=== PATIENT | male | born 1965 | race Caucasian/White ===

== ENCOUNTER 2018-01-17 07:13 | Day surgery (SDC) | payer BC, SELFPAY ==
--- NOTE | 2018-01-17 06:44 | PDOC.DSDIS_ITS ---
Discharge Plan Disposition Patient Disposition: HOME Condition: Fair Discharge Details Reason For Visit: SCREENING Attending Provider: Sudha Hurtado Primary Care Provider: Kyung Lam Home Meds and New Rx's Prescriptions: Continue cyclobenzaprine 10 MG tablet 10 mg PO TID RF: 0 ibuprofen 800 MG tablet 800 mg PO TID RF: 0 Discontinued bisacodyl [Bisa-Lax] 5 MG tablet,delayed release (DR/EC) 5 mg PO as directed Qty: 4 RF: 0 polyethylene glycol 3350 255 GM powder 255 gm PO as directed for colo Qty: 255 RF: 0 Discharge Instructions Instructions: Colonoscopy (DC) Additional Instructions: Findings: normal colonoscopy Follow up: 10 years New Medications: none Please call if you develop: Fevers >101.5 Nausea or Vomiting Abdominal pain that is not transient 1. Because there will be medication in your system for the next 24 hours, you may feel a little sleepy. Your coordination will be affected. Therefore: a. Do not drive or operate dangerous equipment for 24 hours. b. Do not drink alcohol beverages for 24 hours (not even beer). c. Plan to go home and rest for the day. 2. Generally there are no restrictions on your activity after a day or so has gone by, but you may feel a bit fatigued for a few days. 3 After you arrive home you may have a light meal and return to a normal diet as you can tolerate it without feeling sick to your stomach. 4. After surgery, you may feel pain or discomfort. This should be only transient , but if it persists please contact your doctor. 5. If there are any questions regarding the findings of your procedure, please feel free to contact your doctor. 6. If you are unable to contact your doctor with a problem, contact the hospital at [phone]. 7. Continue all your regular medications unless directed otherwise. I understand the above instructions and have no questions. Signature of Patient or Responsible Adult Escort Date/Time Name of Responsible Adult Escort Signature of Nurse Date/Time Activity:: Activity as Tolerated Diet:: regular diet Discharge Orders Discharge Orders: Discharge Order (Routine); Ordered 01/17/18 Ordered By: Sudha Hurtado DS: Diagnosis Discharge Diagnosis (1) Normal colonoscopy: Status: Acute
--- NOTE | 2018-01-17 06:44 | W.COLOREPORT ---
Colonoscopy Report Date of procedure: 01/17/18 Pre-op diagnosis general: screening for colon cancer Post-op diagnosis procedure note: same Procedure: Colonoscopy Surgeon: Sudha Hurtado Anesthesia proc note operative: MAC Estimated blood loss (mL): 0 Pathology: none sent Complications: None Disposition: same day Indications: Mr. Franklin is a pleasant 52 year old male who was seen in the office for a screening Colonoscopy. Risks, benefits and complications were reviewed in the office and in SDS. Prep: Miralax/Dulcolax Procedure Start Time: 08:39 Procedure End Time: 09:00 Retraction Time: 12 minutes Findings: Normal colon Procedure Description: After informed consent was obtained the patient was taken to the procedure room and placed in a left decubitous position. Monitors were applied and a time out was done. The patients name, date of , procedure, allergies to medications and metal in their body was reviewed. The patient was then sedated. Once sedated and comfortable a rectal exam was done. External exam was normal. Internal exam revealed a normal sphincter tone and no palpable masses. The prostate was normal. The scope was then introduced and retrofelexed. No internal hemorrhoids were identified. The scope was straightened and then advanced to the cecum without difficulty. The TI and appendiceal orifice were identified. The prep was adequate. The scope was then slowly retracted over 12 minutes back into the rectum. The scope was removed and the patient was woken up and taken back to Same day surgery in stable condition. The patient tolerated the procedure well and there were no immediate complications. Follow up: The patient should follow up in 10 years unless they develop changes in bowel habits or other new gastrointestinal complaints.
[2018-01-17 07:25] VITALS: BP 121/85; PULSE 57; RESP 18; TEMP 36.2; O2SAT 97
[2018-01-17] MEDS: Lactated Ringers 1,000 ML 80 ML IV (07:54)
[2018-01-17 09:45] VITALS: BP 117/88; PULSE 60; RESP 16; TEMP 35.3; O2SAT 100
== END 2018-01-17 10:00 | disposition home or self-care (01) ==
LOC: SUR 07:14
PROVIDERS: PCP Family Medicine; Visit Provider Surgery
PROC: 0DJD8ZZ Inspection of Lower Intestinal Tract, Via Natural or Artificial Opening Endoscopic (ICD-10-PCS; CPT 45378; principal; 2018-01-17 08:15)
DX: Z12.11 Encounter for screening for malignant neoplasm of colon (principal)
CPT/HCPCS: 45378

== ENCOUNTER 2019-02-27 18:35 | Outpatient (REF) | payer OTHER, SELFPAY ==
[2019-02-27 18:40] LABS: Anion Gap 10.6 mmol/L (3-11); BUN 10 mg/dL (7-18); CO2 28.4 mmol/L (21.0-32.0); CREATININE 0.97 mg/dL (0.70-1.30); Calculated LDL 124 mg/dL; Chloride 104 mmol/L (98-107); Cholesterol 213 mg/dL (50-200); Glucose 90 mg/dL (70-100); HDL Cholesterol 40 mg/dL (40-60); Potassium 4.5 mmol/L (3.5-5.1); Sodium 143 mmol/L (136-145); Triglyceride 246 mg/dL (30-150)
[2019-02-27 18:43] LABS: Hemoglobin A1C 5.2 % (4.5-6.2)
[2019-03-01 12:19] LABS: Hepatitis C Ab w Rflx HCV PCR Negative (NEGAT)
== END 2019-02-27 18:55 ==
LOC: NCHCN 18:35
PROVIDERS: PCP Family Medicine; Visit Provider Family Medicine
DX: Z00.00 Encounter for general adult medical examination without abnormal findings (principal); Z13.228 Encounter for screening for other metabolic disorders; Z11.59 Encounter for screening for other viral diseases; Z13.220 Encounter for screening for lipoid disorders; Z13.1 Encounter for screening for diabetes mellitus
CPT/HCPCS: 80048; 80061; 86803; 83036

== ENCOUNTER 2019-05-12 21:55 | Emergency (ER) | payer OTHER, SELFPAY ==
[2019-05-12 21:59] VITALS: BP 115/80; PULSE 70; TEMP 36.5; O2SAT 99
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
== END 2019-05-12 22:50 | disposition home or self-care (01) ==
PROVIDERS: Emergency Provider Physician Assistant; PCP Family Medicine
DX: S91.012A Laceration without foreign body, left ankle, initial encounter (principal); W26.8XXA Contact with other sharp object(s), not elsewhere classified, initial encounter
CPT/HCPCS: 12002; 90471

== ENCOUNTER 2023-08-09 11:08 | Outpatient (REF) | payer BC, SELFPAY ==
[2023-08-09 18:38] LABS: Calculated LDL 157 mg/dL (<100); Cholesterol 240 mg/dL (<200); HDL Cholesterol 44 mg/dL (40-60); Triglyceride 198 mg/dL (<150)
[2023-08-09 18:43] LABS: Hemoglobin A1C 5.4 % (<5.7)
== END 2023-08-09 11:09 | disposition home or self-care (01) ==
LOC: NCHCN 11:08
PROVIDERS: PCP Family Medicine; Visit Provider Family Medicine
DX: Z13.1 Encounter for screening for diabetes mellitus (principal); Z13.6 Encounter for screening for cardiovascular disorders
CPT/HCPCS: 80061; 83036

== ENCOUNTER 2024-08-16 16:38 | Outpatient (REF) | payer BC, SELFPAY ==
[2024-08-16 20:34] LABS: BUN 15 mg/dL (7-18); Calcium 9.3 mg/dL (8.5-10.1); Calculated LDL 163 mg/dL (<100); Chloride 105 mmol/L (98-107); Cholesterol 240 mg/dL (<200); Glucose 91 mg/dL (74-106); HDL Cholesterol 47 mg/dL (>or=40); Potassium 4.2 mmol/L (3.5-5.1); Sodium 143 mmol/L (136-145); Triglyceride 150 mg/dL (<150)
[2024-08-19 19:01] LABS: Apolipoprotein A1 137 mg/dL (>=120)
[2024-08-22 11:56] LABS: Lipoprotein (a) 190 nmol/L (<75)
== END 2024-08-16 16:39 | disposition home or self-care (01) ==
LOC: NCHCN 16:38
PROVIDERS: PCP Family Medicine; Visit Provider Family Medicine
DX: I10 Essential (primary) hypertension (principal)
CPT/HCPCS: 80048; 80061; 83695; 82172

== ENCOUNTER 2024-12-25 09:02 | Day surgery (SDC) | payer BC, SELFPAY ==
--- NOTE | 2024-12-24 16:22 | W.PM.DSUDISC ---
Date of service: 12/25/24 Discharge Plan Disposition Patient Disposition: Home Condition: Good Discharge Details Reason For Visit: screening colonoscopy Attending Provider: Eder Gtz Primary Care Provider: Kyung Lam Home Meds and New Rx's Prescriptions: Continued cyclobenzaprine 10 MG tablet 10 mg PO PRN PRN ibuprofen 800 MG tablet 800 mg PO PRN PRN Discontinued bisacodyl [Dulcolax (bisacodyl)] 5 mg tablet,delayed release (DR/EC) 5 mg PO ONCE Qty: 4 0RF Rx Instructions: Take per colonoscopy instructions provided by ordering providers office polyethylene glycol 3350 17 gram/dose powder 17 g PO ONCE Qty: 238 0RF Rx Instructions: Take per colonoscopy instructions provided by ordering providers office Discharge Instructions Additional Instructions: Charles, was a pleasure meeting you today, hope you are comfortable through the procedure. Things went very smoothly. Your prep was outstanding. I did not see any signs of tumors, polyps, or anything else out of the ordinary today. Based on your family history, I recommend a 5-year interval for your screening colonoscopies. If you need anything or have any questions at all, please do not hesitate to ask at any time. 1. If tolerated, consume a soft, low fiber diet for 1-2 days. 2. Do not drive, drink alcohol, operate machinery, make critical decisions, or do activities that require coordination or balance for 24 hours. 3. Because air was put into your colon during the procedure, expelling air from your rectum (passing gas or farting) is normal. 4. You may not have a bowel movement for 1-3 days because of the colonoscopy prep. This is normal. 5. Go directly to the emergency room if you notice any of the following: Develop chills (warm to touch), or if you have a thermometer and your temperature is above 101 Difficulty breathing or difficultly swallowing Persistent vomiting Severe abdominal pain, other than gas cramps Severe chest pain Black, tarry stools Any bleeding ? exceeding one tablespoon 6. Call your physician if the site where your intravenous was started becomes red, swollen, painful, and warm to touch. 7. Your physician has reviewed your pre-procedure medications. Please continue to take those medications as previously ordered. You will be given specific information/education regarding any changes to your medications before leaving. Activity:: Activity as Tolerated Diet:: As Tolerated Discharge Orders Discharge Orders: Discharge Order (Routine); Ordered 12/24/24 Ordered By: Eder Gtz DS: Diagnosis Discharge Diagnosis (1) Encounter for screening colonoscopy: Status: Acute Asessment and Plan: Negative screening colonoscopy; based on family history, recommend 5-year intervals
--- NOTE | 2024-12-24 16:23 | W.COLOREPORT ---
Date of service: 12/25/24 Time of Service: 11:11 Colonoscopy Report Date of procedure: 12/25/24 Pre-op diagnosis general: screening colonoscopy Post-op diagnosis procedure note: other (Negative screening colonoscopy) Procedure: colonoscopy Surgeon: Eder Gtz Anesthesia Type: General:No Airway Estimated blood loss (mL): 0 Complications: None Disposition: same day Indications: Charles is a 59 year old man with a fmaily history of rectal cancer. He needs his next screening colonoscopy Prep: Miralax/Dulcolax Procedure Start Time: 10:51 Procedure End Time: 11:04 Retraction Time: 8 Findings: Normal colonoscopy Procedure Description: After the induction of anesthesia, and with the patient in left lateral decubitus position, I began by performing an external anorectal exam.? Perineum and skin were normal, as was the anal verge.? There was no evidence of external hemorrhoids.? Next, I performed a digital rectal exam.? I did not appreciate any abnormal findings.? Next, I advanced a colonoscope into the rectal vault.? I performed retroflexion.? This appeared normal.? Using insufflation, I then advanced the colonoscope beyond the rectal folds and into the sigmoid colon before advancing towards the cecum.? The quality of the prep was outstanding.? The scope was noted to be in the cecum by identification of the ileocecal valve and appendiceal orifice.? I then began withdrawing the colonoscope using repeated irrigation as necessary for full evaluation of the colonic mucosa. ?Once the scope was withdrawn to the level of the rectum, great care was taken to examine portions of the rectal folds.? I saw no signs of tumors, polyps, or any other pathology. Finally, the scope was withdrawn and the patient was brought to the same-day surgery recovery unit as the anesthetic wore off. ?The findings and instructions were shared with the patient prior to discharge. [place] Bowel Prep [place] Bowel Prep Right Colon: 3 Left Colon: 3 Transverse Colon: 3 Total Score: 9
--- NOTE | 2024-12-24 18:48 | W.ANESPRE ---
General Info Date of Service Date Performed: 12/25/24 Height: 5 ft 10 in Weight: 89.358 kg Body Mass Index (BMI): 28.3 Surgical Procedure: Operation Date: 12/25/24 10:35 Proposed Procedure Side Surgeon p Colonoscopy Eder Gtz MD Meds Allergies and Home Medications Allergies Allergy/AdvReac Type Severity Reaction Status Date / Time No Known Allergies Allergy Verified 12/25/24 09:19 Home Medication ?Medication ?Instructions ?Recorded cyclobenzaprine 10 mg tablet 10 mg PO PRN PRN 11/02/17 ibuprofen 800 mg tablet 800 mg PO PRN PRN 11/02/17 Current Visit Medications: Current Medications Generic Name Dose Route Start Last Admin Trade Name Freq PRN Reason Stop Dose Admin Ringer's Solution 1,000 mls @ 80 mls/hr 12/25/24 06:00 IV 01/21/25 23:59 INFUSION GAVIN IV Miscellaneous Supplies 1 each 12/25/24 06:00 Iv Access IV 01/21/25 23:59 DIRECTED GAVIN Ondansetron HCl 4 mg 12/24/24 16:24 Ondansetron 4 Mg/2 Ml Vial IVP 01/23/25 16:23 Q4H PRN PRN Nausea / Vomiting Sodium Chloride 0 ml 12/25/24 06:00 Normal Saline Flush 10 Ml Syr IV 01/21/25 23:59 PRN PRN Sodium Chloride 0 ml 12/25/24 06:00 Normal Saline 10 Ml Vial IJ 01/21/25 23:59 DIRECTED PRN Sterile Water 0 ml 12/25/24 06:00 Water,Injection,Sterile 10 Ml Vial IJ 01/21/25 23:59 DIRECTED PRN PFSH Active Problems Active Problems: Problem Status Onset Code Encounter for screening colonoscopy Acute Z12.11 Hyperlipidemia Acute E78.5 Normal colonoscopy Acute Medical History Medical History Family history of rectal cancer Brother age 55 Back pain Actinic keratosis Surgical History Surgical History History of colonoscopy (~2017) Tobacco Smoking/Tobacco Use Status: Never Alcohol Alcohol Intake: current Alcohol intake frequency: a few times a week Substance Use Substance use: Never Substance use type: does not use Vital Signs and Lab Results Vital Signs Most Recent Vital Signs in EMR: Temp Pulse Resp BP Pulse Ox 36.2 C L 62 18 111/82 99 12/25/24 09:06 12/25/24 09:06 12/25/24 09:06 12/25/24 09:06 12/25/24 09:06 Anesthesia Assessment and Plan Anesthesia History Personal History: No History of Anesthesia Complications Family History: No Family History of Anesthesia Complications Exercise Tolerance Exercise Tolerance: Metabolic Equivalents>4 Pertinent Negatives Pertinent Negatives: No Symptoms of GERD, No Major Cardiovascular Symptoms or Complaints, No Major Pulmonary Symptoms or Complaints and No History of CVA/TIA Cardiac & Pulmonary Exam Cardiac Exam: Normal S1/S2 Heart Sounds Pulmonary Exam: Clear Bilateral Breath Sounds Implantable Cardiac Device Does patient have a Pacemaker or an ICD?: No Airway Exam Known Difficult Airway: No Mallampati Class: 1 Mouth Opening: Normal (> 3cm) Thyromental Distance: Greater than 3 cm Neck Range of Motion: Full ROM Neck Circumference: Normal Teeth Condition: Normal Dentition ASA Classification ASA Score: ASA 2 Emergency Case?: No NPO Status NPO Status: NPO Clears >2 hours, Solids >8 hours Anesthesia Plan Resuscitation Status: Full Code Anesthesia Technique: General Anesthesia Airway Planned: Natural Airway Monitors Used: Standard Monitors Preoperative Comments:: 59 yo for colo. Sig PMHx: no major. Previous Anes: - colo, prop, natural airway, no issues.
[2024-12-25 09:06] VITALS: BP 111/82; PULSE 62; RESP 18; TEMP 36.2; O2SAT 99
[2024-12-25] MEDS: Lactated Ringers 1,000 ML 80 ML IV (09:40)
[2024-12-25 10:34] VITALS: BMI 28.3
[2024-12-25 11:07] VITALS: BP 115/81; PULSE 78; RESP 16; TEMP 36.6; O2SAT 97
[2024-12-25 11:36] VITALS: BP 121/81; PULSE 62; RESP 18; O2SAT 96
--- NOTE | 2024-12-25 12:01 | W.ANESPOSTOP ---
Postoperative Evaluation Date, Time and Location Date Performed: 12/25/24 Time Performed: 11:10 Patient Location: Day Surgery Unit Vital Signs Most Recent Imported Vital Signs: Most Recent Vital Signs Temp Pulse Resp BP Pulse Ox 36.6 C 78 16 115/81 97 12/25/24 11:07 12/25/24 11:07 12/25/24 11:07 12/25/24 11:07 12/25/24 11:07 Pain Score Most Recent Pain Score: Most Recent Pain Score Pain Level 0 12/25/24 11:07 Assessment Mental Status: Awake (Alert & Oriented to Patient Baseline) Airway and Respiratory Function: Patent airway with normal (patient baseline) respiratory exam Cardiovascular Function: Hemodynamically Stable Hydration Status: Adequately Hydrated Nausea & Vomiting: No Nausea or Vomiting Pain: Pt. Denies Any Pain Peripheral Nerve Block: Patient did not receive a nerve block
== END 2024-12-25 11:50 | disposition home or self-care (01) ==
LOC: SUR 09:02
PROVIDERS: PCP Family Medicine; Visit Provider Surgery
PROC: 0DJD8ZZ Inspection of Lower Intestinal Tract, Via Natural or Artificial Opening Endoscopic (ICD-10-PCS; CPT 45378; principal; 2024-12-25 10:30)
DX: Z12.11 Encounter for screening for malignant neoplasm of colon (principal); Z80.0 Family history of malignant neoplasm of digestive organs
CPT/HCPCS: 45378; J2704